=== PATIENT | male | born 1975 | race Two or more races ===

== ENCOUNTER → 2017-06-08 | Outpatient (CLI) | payer OTHER ==
--- NOTE | 2017-06-08 14:47 | CARD ---
APPROVED REPORT INDICATION Cardiac Disease: CAD RISK FACTORS Hypertension PROCEDURE The patient underwent an exercise Stress Test using the Luigi protocol. Blood pressure, heart rate, a nd EKG were monitored. An Echocardiogram was performed by veterinary technician instructor in four stages in quad fashion. At peak stress four se lected images were obtained and placed side by side with resting images for comparison. STRESS ECHO FINDINGS The resting Echocardiogram showed normal left ventricular contractility with an estimated Ejection Fr action of about 60 %. Normal augmentation of myocardial wall segments using a 16 segment model. Test Type: Exercise Stress Nurse/Tech: Sheri Maddox R.N. Test Indications: cad Cardiac History and Allergies: hx of stents Medications: liptior, plavix, carvedilol Resting ECG: sr with flipped Ts in II III avf Nurse/Tech Notes lungs cta, heart tones regular, good radial pulse Stress Symptoms No chest pain or symptoms. POST EXERCISE Reason for Termination: Reached target heart rate Target HR: Yes Max HR: 155 bpm 86% of Maximum Predicted HR: 180 bpm Exercise duration: 10:52 min:sec, 4 Stage Exercise capacity: 12.8METs Max Blood Pressure: 173/66mmHg Blood Pressure response to exercise: Normal blood pressure response during stress. Heart Rate response to exercise: normal Chest Pain: No. Arrhythmia: Yes. occasional multifocal pvc noted ST Change: Yes. some ST depression noted in Stage 3 that resolved in recovery INTERPRETATION Stress EKG Conclusion: Baseline EKG showed sinus rhythm. No ischemic changes at peak stress. No arr hythmias. RESTING ECG Rhythm: Sinus STRESS ECG Rhythm: Sinus Tachycardia Arrhythmias: None Stress EKG shows no significant changes. Preliminary Notification Critical Value: No <Conclusion> Treadmill exercise stress echocardiogram did not show any evidence of ischemia or infarct. Normal left ventricle systolic function with ejection fraction estimated at 60%. Patient had good activity tolerance. Low risk for cardiac events.
== END | disposition home or self-care (01) ==
LOC: ECHO 12:34
PROVIDERS: ATTEND Internal Medicine Cardiovascular Disease
DX: I25.10 Atherosclerotic heart disease of native coronary artery without angina pectoris (principal)
CPT/HCPCS: 93017; 93350

== ENCOUNTER → 2018-08-22 | Outpatient (CLI) | payer OTHER ==
--- NOTE | 2018-08-22 13:41 | CARD ---
MR#: [id number] Date of Study: 08/22/2018 Ordering Physician: JASON CROWLEY, Referring Physician: JASON CROWLEY Tech: Sonya Knight RDCS APPROVED REPORT EXAM: Two-dimensional and M-mode echocardiogram with Doppler and color Doppler. Other Information Quality : GoodHR: 75bpm Rhythm : NSR INDICATION CAD 2D DIMENSIONS RVDd3.1 (2.9-3.5cm)Left Atrium(2D)3.8 (1.6-4.0cm) IVSd1.0 (0.7-1.1cm)Aortic Root(2D)3.0 (2.0-3.7cm) LVDd4.7 (3.9-5.9cm)LVOT Diameter2.1 (1.8-2.4cm) PWd0.9 (0.7-1.1cm)LVDs3.4 (2.5-4.0cm) FS (%) 27.7 %SV54.9 ml LVEF(%)54.0 (>50%) M-Mode DIMENSIONS Left Atrium(MM)3.83 (2.5-4.0cm)Aortic Root3.13 (2.2-3.7cm) Aortic Valve AoV Peak Nabeel.110.1cm/sAoV VTI23.2cm AO Peak GR.4.8mmHgLVOT Peak Nabeel.97.1cm/s AO Mean GR.3mmHgAVA (VMAX)3.11cm2 JIGNESH (VTI)3.10cm2 Mitral Valve MV E Beyjeszf98.1cm/sMV E Peak Gr.3mmHg MV DECEL [id number] A Xviefalr71.9cm/s MV E Mean Gr.1mmHgE/A Ratio2.0 MV A Ctxcbrvj63fk Pulmonary Valve PV Peak Xwenzaqg066.4cm/s Tricuspid Valve TR P. Goqkwyzr727mg/sRAP YDPUKFKS9kqQx TR Peak Gr.06zbOmRPFP41jxJk Pulmonary Vein S1 Zamvypkf15.6cm/sD2 Pdjxgzgw95.1cm/s PVa lmjreyux51dbpk LEFT VENTRICLE The left ventricle is normal size. There is normal left ventricular wall thickness. The left ventricu lar systolic function is normal and the ejection fraction is within normal range. The Ejection Fracti on is 55-60%. There is normal LV segmental wall motion. The left ventricular diastolic function and f illing is normal for age. RIGHT VENTRICLE The right ventricle is normal size. There is normal right ventricular wall thickness. The right ventr icular systolic function is normal. ATRIA The left atrium size is normal. The right atrium size is normal. The interatrial septum is intact wit h no evidence for an atrial septal defect or patent foramen ovale as noted on 2-D or Doppler imaging. AORTIC VALVE The aortic valve is normal in structure and function. The aortic valve is trileaflet. Doppler and Col or Flow revealed no significant aortic regurgitation. There is no significant aortic valvular stenosi s. MITRAL VALVE The mitral valve is normal in structure and function. There is no evidence of mitral valve prolapse. There is no mitral valve stenosis. Doppler and Color-flow revealed trace mitral regurgitation. TRICUSPID VALVE The tricuspid valve is normal in structure and function. Doppler and Color Flow revealed mild tricusp id regurgitation. The PA pressure was estimated at 33 mmHg. There is no tricuspid valve prolapse or v egetation. There is no tricuspid valve stenosis. PULMONIC VALVE Doppler and Color Flow revealed no pulmonic valvular regurgitation. There is no pulmonic valvular milton nosis. GREAT VESSELS The aortic root is normal in size. The ascending aorta is normal in size. The IVC is normal in size a nd collapses >50% with inspiration. PERICARDIAL EFFUSION There is no evidence of significant pericardial effusion. Critical Notification Critical Value: No <Conclusion> The left ventricular systolic function is normal and the ejection fraction is within normal range. Th e Ejection Fraction is 55-60%. There is normal LV segmental wall motion. Doppler and Color Flow revealed mild tricuspid regurgitation. The PA pressure was estimated at 33 mmH g. Signed by : Mookie Watkins, Electronically Approved : 08/22/2018 13:40:10
== END | disposition home or self-care (01) ==
LOC: ECHO 13:00
PROVIDERS: ATTEND Internal Medicine Cardiovascular Disease
DX: I36.1 Nonrheumatic tricuspid (valve) insufficiency (principal); I25.10 Atherosclerotic heart disease of native coronary artery without angina pectoris
CPT/HCPCS: 93306

== ENCOUNTER 2018-11-10 12:53 | Emergency (ER) | payer OTHER ==
[~2018-11-10] VITALS: Ht 167.6 cm; Wt 76.2 kg
[2018-11-10] MEDS ORDERED: IV NORMAL SALINE 500ML BAG 500 ML IV ONE (14:00)
[2018-11-10] MEDS ORDERED: MECLIZINE HCL 12.5 MG TABLET. PO ONE (14:00)
[2018-11-10] MEDS ORDERED: ONDANSETRON PF 4 MG/2 ML VIAL. IV ONE (14:00)
--- NOTE | 2018-11-10 14:05 | PHYS DOC ---
Past Medical History Past Medical History: High Cholesterol, Hypertension, ME Past Surgical History: Other Additional Past Surgical Histo: cardiac stents,vasectomy Alcohol Use: Occasionally Drug Use: Marijuana Adult General Chief Complaint Chief Complaint: DIZZY/LIGHT HEADED HPI HPI Patient is a 43 year old male who presents with dizziness. This started last night. Worse with change in position as well as head movement. There is nausea. No photophobia. No headache. No trauma. No blood in the emesis. Holding still and keeping eyes closed seems to help with the dizziness. Dizziness does get better with holding in one position.[] Review of Systems Review of Systems Constitutional: Denies fever or chills [] Eyes: Denies change in visual acuity, redness, or eye pain [] HENT: Denies nasal congestion or sore throat [] Respiratory: Denies cough or shortness of breath [] Cardiovascular: No chest pain or palpitations[] GI: Denies abdominal pain, nausea, vomiting, bloody stools or diarrhea [] : Denies dysuria or hematuria [] Musculoskeletal: Denies back pain or joint pain [] Integument: Denies rash or skin lesions [] Neurologic: Denies headache, focal weakness or sensory changes [] Endocrine: Denies polyuria or polydipsia [] All other systems were reviewed and found to be within normal limits, except as documented in this note. Current Medications Current Medications Current Medications Medications (Trade) Dose Ordered Sig/Marija Start Time Stop Time Status Last Admin Dose Admin Meclizine HCl (Antivert) 25 mg 1X ONCE 11/10/18 14:00 11/10/18 14:01 DC 11/10/18 14:37 25 MG Ondansetron HCl (Zofran) 4 mg 1X ONCE 11/10/18 14:00 11/10/18 14:01 DC 11/10/18 14:32 4 MG Sodium Chloride 500 ml @ 500 mls/hr 1X ONCE 11/10/18 14:00 11/10/18 14:59 DC 11/10/18 14:37 500 MLS/HR Allergies Allergies Allergies Coded Allergies Type Severity Reaction Last Updated Verified No Known Drug Allergies 11/10/18 No Physical Exam Physical Exam Constitutional: Well developed, well nourished, no acute distress, non-toxic appearance. [] HENT: Normocephalic, atraumatic, bilateral external ears normal, oropharynx moist, no oral exudates, nose normal. [] Eyes: PERRLA, EOMI, conjunctiva normal, no discharge. [] Neck: Normal range of motion, no tenderness, supple, no stridor. [] Cardiovascular:Heart rate regular rhythm, no murmur [] Lungs & Thorax: Bilateral breath sounds clear to auscultation [] Abdomen: Bowel sounds normal, soft, no tenderness, no masses, no pulsatile masses. [] Skin: Warm, dry, no erythema, no rash. [] Back: No tenderness, no CVA tenderness. [] Extremities: No tenderness, no cyanosis, no clubbing, ROM intact, no edema. [] Neurologic: Alert and oriented X 3, normal motor function, normal sensory function, no focal deficits noted. Nystagmus is noted on raising the patient to a seated position, nystagmus with fast beat to the right. And patient looking left. This resolves in less than 45 seconds. This re-creates patient's symptoms. [] Psychologic: Affect normal, judgement normal, mood normal. [] Current Patient Data Vital Signs Vital Signs Date Time Temp Pulse Resp B/P (MAP) Pulse Ox O2 Delivery O2 Flow Rate FiO2 11/10/18 14:26 60 18 99 11/10/18 13:15 97.5 143/85 (104) Room Air 97.5 Lab Values Laboratory Tests Test 11/10/18 13:37 11/10/18 14:30 White Blood Count 11.9 x10^3/uL (4.0-11.0) H Red Blood Count 4.46 x10^6/uL (4.30-5.70) Hemoglobin 13.7 g/dL (13.0-17.5) Hematocrit 39.9 % (39.0-53.0) Mean Corpuscular Volume 89 fL (79-100) Mean Corpuscular Hemoglobin 31 pg (25-35) Mean Corpuscular Hemoglobin Concent 34 g/dL (31-37) Red Cell Distribution Width 13.3 % (11.5-14.5) Platelet Count 213 x10^3/uL (140-400) Neutrophils (%) (Auto) 86 % (31-73) H Lymphocytes (%) (Auto) 10 % (24-48) L Monocytes (%) (Auto) 3 % (0-9) Eosinophils (%) (Auto) 0 % (0-3) Basophils (%) (Auto) 0 % (0-3) Neutrophils # (Auto) 10.3 x10^3uL (1.8-7.7) H Lymphocytes # (Auto) 1.2 x10^3/uL (1.0-4.8) Monocytes # (Auto) 0.4 x10^3/uL (0.0-1.1) Eosinophils # (Auto) 0.1 x10^3/uL (0.0-0.7) Basophils # (Auto) 0.0 x10^3/uL (0.0-0.2) Segmented Neutrophils % 76 % (35-66) H Band Neutrophils % 3 % (0-9) Lymphocytes % 15 % (24-48) L Monocytes % 6 % (0-10) Platelet Estimate Adequate (ADEQUATE) Sodium Level 140 mmol/L (136-145) Potassium Level 3.8 mmol/L (3.5-5.1) Chloride Level 105 mmol/L (98-107) Carbon Dioxide Level 23 mmol/L (21-32) Anion Gap 12 (6-14) Blood Urea Nitrogen 16 mg/dL (8-26) Creatinine 0.9 mg/dL (0.7-1.3) Estimated GFR (Cockcroft-Gault) 93.0 BUN/Creatinine Ratio 18 (6-20) Glucose Level 130 mg/dL (70-99) H Calcium Level 9.5 mg/dL (8.5-10.1) Total Bilirubin 0.5 mg/dL (0.2-1.0) Aspartate Amino Transferase (AST) 20 U/L (15-37) Alanine Aminotransferase (ALT) 43 U/L (16-63) Alkaline Phosphatase 125 U/L (46-116) H Troponin I Quantitative < 0.017 ng/mL (0.000-0.055) Total Protein 7.5 g/dL (6.4-8.2) Albumin 4.0 g/dL (3.4-5.0) Albumin/Globulin Ratio 1.1 (1.0-1.7) Influenza Type A Antigen Negative (NEGATIVE) Influenza Type B Antigen Negative (NEGATIVE) Laboratory Tests 11/10/18 13:37 Laboratory Tests 11/10/18 13:37 EKG EKG EKG shows sinus rhythm at 56 bpm, normal axis, normal QTC, no ST elevation[] Radiology/Procedures Radiology/Procedures CT HEAD WO CONTRAST History: Dizziness Comparison: None. Technique: Noncontrast CT imaging was performed of the head. Exposure: One or more of the following individualized dose reduction techniques were utilized for this examination: 1. Automated exposure control 2. Adjustment of the mA and/or kV according to patient size 3. Use of iterative reconstruction technique. Findings: No acute extra-axial or parenchymal hemorrhage is identified. There is no significant intra-axial mass effect, midline shift, or extra-axial fluid collection. The galarza-white differentiation of the major vascular territories is preserved. The ventricles, sulci, and cisterns are within normal limits in size and configuration. Mastoid air cells are aerated. There is moderate calcific thickening of the visualized left maxillary sinus, also of the left sphenoid sinus. There is patchy ethmoid air cell mucosal thickening greater on the left also of the limited pneumatized left frontal sinus. There are small air-fluid levels posterior left ethmoid air cell and left frontal ethmoidal recess. No acute calvarial abnormality is identified. Impression: 1. No acute intracranial abnormality is identified. 2. There is paranasal sinus mucosal thickening as stated, also with air-fluid levels which may be due to acute sinusitis. [] Course & Med Decision Making Course & Med Decision Making Pertinent Labs and Imaging studies reviewed. (See chart for details) ED course: Patient arrived, was placed in bed, tolerated exam well. Patient received antivertigo medicines which did improve his discomfort. He was able to ambulate without any assistance. After the return of lab and imaging findings, these were discussed with patient and family voiced understanding. All questions were answered. Medical decision making: This appears to be a peripheral vertigo, no evidence of central vertigo, no evidence of stroke syndrome, no evidence of significant electrolytic abnormality.[] Dragon Disclaimer Dragon Disclaimer This electronic medical record was generated, in whole or in part, using a voice recognition dictation system. Departure Departure Impression: Primary Impression: Vertigo Disposition: HOME, SELF-CARE Condition: GOOD Referrals: KAITLIN MIRANDA MD (PCP) Patient Instructions: Vertigo Additional Instructions: Follow-up with your regular doctor in 2 days. Return to the ER if worsening symptoms, unable to tolerate liquids, or any other concerns. Scripts Meclizine Hcl (MECLIZINE HCL) 25 Mg Tablet 1 TAB PO PRN TID, #30 TAB Prov: MERARI MARIN DO 11/10/18 Ondansetron Hcl (ZOFRAN) 4 Mg Tablet 4 MG PO PRN TID PRN for NAUSEA/VOMITING, #15 nausea/vomiting Prov: MERARI MARIN DO 11/10/18 MERARI MARIN DO Nov 10, 2018 14:05
[2018-11-10 14:16] LABS: BASO % 0 % (0-3); EOS # 0.1 x10^3/uL (0.0-0.7); EOS % 0 % (0-3); HEMATOCRIT 39.9 % (39.0-53.0); HEMOGLOBIN 13.7 g/dL (13.0-17.5); LYMPH # 1.2 x10^3/uL (1.0-4.8); LYMPH % 10 % (24-48); MEAN CORPUSCULAR HEMOGLOBIN 31 pg (25-35); MEAN CORPUSCULAR HGB CONC 34 g/dL (31-37); MEAN CORPUSCULAR VOLUME 89 fL (79-100); MONO # 0.4 x10^3/uL (0.0-1.1); MONO % 3 % (0-9); NEUT # 10.3 x10^3uL (1.8-7.7); NEUT % 86 % (31-73); PLATELET COUNT 213 x10^3/uL (140-400); RED BLOOD COUNT 4.46 x10^6/uL (4.30-5.70); RED CELL DISTRIBUTION WIDTH 13.3 % (11.5-14.5); WHITE BLOOD COUNT 11.9 x10^3/uL (4.0-11.0)
--- NOTE | 2018-11-10 14:21 | EKG ---
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
[2018-11-10 14:28] LABS: CALCIUM 9.5 mg/dL (8.5-10.1); CREATININE 0.9 mg/dL (0.7-1.3); POTASSIUM 3.8 mmol/L (3.5-5.1)
[2018-11-10 14:33] LABS: ALBUMIN/GLOBULIN RATIO 1.1 (1.0-1.7); TOTAL BILIRUBIN 0.5 mg/dL (0.2-1.0); TOTAL PROTEIN 7.5 g/dL (6.4-8.2)
--- NOTE | 2018-11-10 14:35 | RAD ---
CT HEAD WO CONTRAST History: Dizziness Comparison: None. Technique: Noncontrast CT imaging was performed of the head. Exposure: One or more of the following individualized dose reduction techniques were utilized for this examination: 1. Automated exposure control 2. Adjustment of the mA and/or kV according to patient size 3. Use of iterative reconstruction technique. Findings: No acute extra-axial or parenchymal hemorrhage is identified. There is no significant intra-axial mass effect, midline shift, or extra-axial fluid collection. The galarza-white differentiation of the major vascular territories is preserved. The ventricles, sulci, and cisterns are within normal limits in size and configuration. Mastoid air cells are aerated. There is moderate calcific thickening of the visualized left maxillary sinus, also of the left sphenoid sinus. There is patchy ethmoid air cell mucosal thickening greater on the left also of the limited pneumatized left frontal sinus. There are small air-fluid levels posterior left ethmoid air cell and left frontal ethmoidal recess. No acute calvarial abnormality is identified. Impression: 1. No acute intracranial abnormality is identified. 2. There is paranasal sinus mucosal thickening as stated, also with air-fluid levels which may be due to acute sinusitis. Electronically signed by: Lázaro Grayson MD (11/10/2018 2:31 PM) [id number]
[2018-11-10 15:00] LABS: % BANDS 3 % (0-9); % LYMPHS 15 % (24-48); % MONOS 6 % (0-10); % SEGS 76 % (35-66)
[2018-11-10 15:02] LABS: PLT ESTIMATE ADEQUATE (ADEQUATE)
[2018-11-10 15:15] LABS: INFLUENZA A PATIENT NEGATIVE (NEGATIVE); INFLUENZA B PATIENT NEGATIVE (NEGATIVE)
[2018-11-10 17:26] VITALS: BP 107/66
[2018-11-10] MEDS ORDERED: MECL25TA3 PO (17:30)
[2018-11-10] MEDS ORDERED: ONDA4TAB7 PO (17:30)
== END 2018-11-10 18:00 | disposition home or self-care (01) ==
LOC: ER 12:53
DX: R42 Dizziness and giddiness (principal); R11.0 Nausea; H55.00 Unspecified nystagmus; I10 Essential (primary) hypertension; E78.00 Pure hypercholesterolemia, unspecified; I25.2 Old myocardial infarction
CPT/HCPCS: 36415; 70450; 80053; 84484; 85007; 85025; 87804; 93005; 96361; 96374; 99284; J2405; J7040; J8597

== ENCOUNTER → 2020-03-27 | Outpatient (CLI) | payer OTHER ==
[~2020-03-27] MED LIST: MECL-75 PO; ONDA4TAB7 PO
[2020-03-27 10:32] LABS: BASO % 0 % (0-3); EOS # 0.2 x10^3/uL (0.0-0.7); EOS % 3 % (0-3); HEMATOCRIT 38.4 % (39.0-53.0); LYMPH # 1.3 x10^3/uL (1.0-4.8); LYMPH % 18 % (24-48); MEAN CORPUSCULAR HEMOGLOBIN 30 pg (25-35); MEAN CORPUSCULAR HGB CONC 34 g/dL (31-37); MEAN CORPUSCULAR VOLUME 89 fL (79-100); MONO # 0.5 x10^3/uL (0.0-1.1); MONO % 7 % (0-9); NEUT # 5.3 x10^3/uL (1.8-7.7); NEUT % 72 % (31-73); PLATELET COUNT 200 x10^3/uL (140-400); RED BLOOD COUNT 4.32 x10^6/uL (4.30-5.70); RED CELL DISTRIBUTION WIDTH 13.6 % (11.5-14.5); WHITE BLOOD COUNT 7.5 x10^3/uL (4.0-11.0)
[2020-03-27 10:51] LABS: ALBUMIN 3.7 g/dL (3.4-5.0); ALBUMIN/GLOBULIN RATIO 1.1 (1.0-1.7); CALCIUM 8.6 mg/dL (8.5-10.1); CREATININE 1.1 mg/dL (0.7-1.3); GFR 73.4; POTASSIUM 4.1 mmol/L (3.5-5.1); TOTAL BILIRUBIN 0.7 mg/dL (0.2-1.0)
[2020-03-27 10:54] LABS: CHOLESTEROL/HDL RATIO 3.5
== END | disposition home or self-care (01) ==
LOC: LAB 10:07
PROVIDERS: ATTEND Nurse Practitioner Family
DX: Z00.00 Encounter for general adult medical examination without abnormal findings (principal)
CPT/HCPCS: 36415; 80053; 80061; 82306; 84443; 85025

== ENCOUNTER → 2020-07-24 | Outpatient (CLI) | payer OTHER ==
--- NOTE | 2020-07-25 08:38 | CARD ---
MR#: [id number] Date of Study: 07/24/2020 Ordering Physician: JASON CROWLEY, Referring Physician: Yousif MERCADO: Aditi Ragland RDCS APPROVED REPORT INDICATION Cardiac Disease: CAD PROCEDURE The patient underwent an Exercise Stress Test using the Luigi Protocol. Blood pressure, heart rate, a nd EKG were monitored. An Echocardiogram was performed by central supply technician supervisor in four stages in quad fashion. At peak stress four se lected images were obtained and placed side by side with resting images for comparison. STRESS ECHO FINDINGS The resting Echocardiogram showed abnormal left ventricular systolic contractility with an estimated Ejection Fraction of about 55 %. The Stress Echocardiogram showed normal augmentation of myocardial wall segments using a 16 segment m edilberto. The Stress Echocardiogram left ventricular systolic contractility has an estimated Ejection Fraction of about 70%. Test Type: Exercise Stress Nurse/Tech: Sasha Pimentel RN Test Indications: CAD Cardiac History and Allergies: stents x4 (11 years ago) Medications: see EMR Medical History: see EMR Resting ECG: SR Resting Heart Rate: 68 bpm Resting Blood Pressure: 106/51mmHg Pretest Chest Pain: No chest pain Nurse/Tech Notes S1,S2 and lungs clear to auscultation. Stress Symptoms No chest pain or symptoms. Patient stated he needed to use the bathroom. POST EXERCISE Reason for Termination: Fatigue Target HR: No Max HR: 152 bpm 86% of Maximum Predicted HR: 177 bpm Exercise duration: 13:16 min:sec, 5 Stage Exercise capacity: 14.8METs Max Blood Pressure: 176/77mmHg Blood Pressure response to exercise: Normal blood pressure response during stress. Heart Rate response to exercise: WNL Chest Pain: No. Arrhythmia: Yes. PVCs ST Change: No. INTERPRETATION Stress EKG Conclusion: Baseline EKG showed sinus rhythm. No ischemic changes at peak stress. No arr hythmias. Preliminary Notification Critical Value: No <Conclusion> Treadmill exercise stress echocardiogram did not show any evidence of ischemia or infarct. Normal left ventricle systolic function with ejection fraction estimated at 55%. Patient had good activity tolerance. Low risk for cardiac events. Signed by : Jason Crowley, Electronically Approved : 07/25/2020 08:38:46
== END | disposition home or self-care (01) ==
LOC: ECHO 12:28
PROVIDERS: ATTEND Internal Medicine Cardiovascular Disease
DX: I25.10 Atherosclerotic heart disease of native coronary artery without angina pectoris (principal); Z95.5 Presence of coronary angioplasty implant and graft
CPT/HCPCS: 93017; 93350

== ENCOUNTER → 2021-07-30 | Outpatient (CLI) | payer OTHER ==
--- NOTE | 2021-07-30 16:01 | CARD ---
MR#: [id number] Date of Study: 07/30/2021 Ordering Physician: JASON DE DIOS, Referring Physician: JASON DE DIOS, Tech: Fern Reyes, [facility] APPROVED REPORT EXAM: Two-dimensional and M-mode echocardiogram with Doppler and color Doppler. Other Information Quality : AverageHR: 67bpm INDICATION Cardiac Disease: CAD RISK FACTORS Hypertension Hyperlipidemia History of 4 stents 2D DIMENSIONS Left Atrium(2D)3.4 (1.6-4.0cm)IVSd0.9 (0.7-1.1cm) Aortic Root(2D)3.1 (2.0-3.7cm)LVDd4.9 (3.9-5.9cm) LVOT Diameter2.1 (1.8-2.4cm)PWd0.9 (0.7-1.1cm) LVDs3.0 (2.5-4.0cm)FS (%) 38.7 % SV79.5 mlLVEF(%)68.9 (>50%) Aortic Valve AoV Peak Nabeel.114.7cm/sAoV VTI26.5cm AO Peak GR.5.3mmHgLVOT Peak Nabeel.95.4cm/s LVOT VTI 19.89cmAO Mean GR.4mmHg JIGNESH (VMAX)2.61ly4NSS (VTI)2.55cm2 Mitral Valve MV E Trrojqct96.0cm/sMV DECEL AKKP696sh MV A Byvopsww02.5cm/sMV E Mean Gr.2mmHg MV QDY53jtM/A Ratio1.6 MVA (PHT)3.76cm2 TDI E/Lateral E'4.3E/Medial E'7.7 Pulmonary Valve PV Peak Vdoscwbv837.4cm/sPV Peak Grad.4mmHg Tricuspid Valve TR P. Jmmxzhud695gs/sRAP CBRPRHJE8otZj TR Peak Gr.80dhAzQEQO18nuPu Pulmonary Vein S1 Axkxbwmb16.3cm/sD2 Qbtvvutj80.9cm/s PVa pmwgzrwb259rkts LEFT VENTRICLE The left ventricle is normal size. There is normal left ventricular wall thickness. The left ventricu lar systolic function is normal. The Ejection Fraction is 55-60%. There is normal LV segmental wall m otion. The left ventricular diastolic function and filling is normal for age. RIGHT VENTRICLE The right ventricle is normal size. There is normal right ventricular wall thickness. The right ventr icular systolic function is normal. ATRIA The left atrium size is normal. The right atrium size is normal. The interatrial septum is intact wit h no evidence for an atrial septal defect or patent foramen ovale as noted on 2-D or Doppler imaging. AORTIC VALVE The aortic valve is normal in structure and function. Doppler and Color Flow revealed trace aortic re gurgitation. There is no significant aortic valvular stenosis. Calculated aortic valve area is 3.11 c m2 with maximum pressure gradient of 9 mmHg and mean pressure gradient of 5 mmHg. MITRAL VALVE The mitral valve is normal in structure and function. There is no evidence of mitral valve prolapse. There is no mitral valve stenosis. Doppler and Color-flow revealed trace mitral regurgitation. TRICUSPID VALVE The tricuspid valve is normal in structure and function. Doppler and Color Flow revealed trace tricus pid regurgitation with an estimated PAP of 37 mmHg. There is no tricuspid valve stenosis. PULMONIC VALVE The pulmonic valve is not well visualized. Doppler and Color Flow revealed trace pulmonic valvular re gurgitation. GREAT VESSELS The aortic root is normal in size. The IVC is normal in size and collapses >50% with inspiration. PERICARDIAL EFFUSION There is no evidence of significant pericardial effusion. Critical Notification Critical Value: No <Conclusion> The left ventricular systolic function is normal. The Ejection Fraction is 55-60%. There is normal LV segmental wall motion. Trace mitral regurgitation. Trace tricuspid regurgitation with an estimated PAP of 37 mmHg. There is no evidence of significant pericardial effusion. Signed by : Jason De Dios, Electronically Approved : 07/30/2021 16:01:16
== END ==
LOC: ECHO 09:55
PROVIDERS: ATTEND Internal Medicine Cardiovascular Disease
DX: I25.10 Atherosclerotic heart disease of native coronary artery without angina pectoris (principal)
CPT/HCPCS: 93306